=== PATIENT | female | born 1955 | race Caucasian/White ===

== ENCOUNTER 2016-11-24 13:05 | Emergency (ER) | payer OTHER, BC ==
[2016-11-24 13:20] VITALS: BP 113/80; PULSE 77; TEMP 97.5; BMI 29.7
--- NOTE | 2016-11-24 13:22 | PDOC ---
History of Present Illness - General Chief Complaint: Pain Stated Complaint: ABDOMINAL PAIN/NAUSEA History Source: Patient Exam Limitations: No Limitations - History of Present Illness Travel History: No Initial Comments: 11/24/16 13:50 61y F hx of hypothyroidism, niddm, hl, presents with complaint of abd pain. pt states her abd pain started on thursday, associated with several episodes of vomiting on thursday/thursday as well as several episdoes of water diarrhea. The pt denies any fever/chills. Pt states her abd pain started in the periumbilical area originally and has radiated to the rigght lower quadrant. pt denies any bilious vomiting (only of food contents) and denies melena, bpr. no sick contacts. pt travelling up from [place] to visit her daugther. Past History - Past Medical History Allergies/Adverse Reactions: Allergies Allergy/AdvReac Type Severity Reaction Status Date / Time acetaminophen [From Percocet] Allergy Verified 11/24/16 13:26 codeine Allergy Verified 11/24/16 13:25 ketorolac tromethamine Allergy Verified 11/24/16 13:26 [From Toradol] oxycodone HCl [From Percocet] Allergy Verified 11/24/16 13:26 Sulfa (Sulfonamide Allergy Verified 11/24/16 13:25 Antibiotics) Home Medications: Ambulatory Orders Allopurinol [Zyloprim -] 200 mg PO HS 11/24/16 Atorvastatin Ca [Lipitor] 10 mg PO HS 11/24/16 Bupropion HCl [Bupropion Xl] 150 mg PO BID 11/24/16 Butalb/Acetaminophen/Caffeine [Fioricet 50-300-40 mg Capsule] 1 each PO PRN PRN 11/24/16 Clonazepam [Klonopin] 1 mg PO AM 11/24/16 Clonazepam [Klonopin] 2 mg PO HS 11/24/16 Cyanocobalamin (Vitamin B-12) [Cyanocobalamin Injection] 1,000 mcg IJ WEEKLY Empagliflozin [Jardiance] 10 mg PO DAILY 11/24/16 Gabapentin 100 mg PO TID 11/24/16 Levothyroxine [Synthroid -] 137 mcg PO DAILY 11/24/16 Metformin HCl [Metformin HCl ER] 1,000 mg PO BID 11/24/16 Pantoprazole Sodium 40 mg PO DAILY 11/24/16 Sumatriptan Succinate [Imitrex] 25 mg PO PRN PRN 11/24/16 Tramadol HCl [Ultram] 50 mg PO PRN PRN 11/24/16 Trazodone HCl 400 mg PO HS 11/24/16 Trulicity IJ WEEKLY 11/24/16 - Psycho/Social/Smoking Cessation Hx Suicidal Ideation: No Smoking History: Never smoked Review of Systems - Review of Systems Able to Perform ROS?: Yes Comments:: 11/24/16 13:52 Constitutional - no reported Fever, Chills, weakness, HEENT: no reported vision changes, sore throat Respiratory: no reported cough, sob, hemoptysis Cardiac: no reported chest pain, palpitations, light headedness, leg swelling Abd/GI: + abd pain, nausea, vomiting, diarrhea no reported blood per rectum, melena, : no reported dysuria, frequency, discharge Musculskelatal - no reported back pain, joint swelling skin - no reported bruising, erythema, rash neurological: no reported headache, numbness, focal weakness, tingling, ataxia, weakness hematologic: no reported anemia, easy bruising, easy bleeding *Physical Exam - Vital Signs Last Vital Signs Temp Pulse Resp BP Pulse Ox 97.5 F L 77 16 113/80 100 11/24/16 13:18 11/24/16 13:18 11/24/16 13:18 11/24/16 13:18 11/24/16 13:18 - Physical Exam Comments: 11/24/16 13:53 GENERAL: The patient is awake, alert, and fully oriented, Nontoxic - in no acute distress. HEAD: Normocephalic, atraumatic. EYES: extraocular movements intact, sclera anicteric, conjunctiva clear. ENT: Normal voice, Moist mucous membranes. NECK: Normal range of motion, supple LUNGS: Breath sounds equal, clear to auscultation bilaterally. No wheezes, no rhonchi, no rales. HEART: Regular rate and rhythm, normal S1 and S2 without murmur, rub or gallop. ABDOMEN: mild difufse tenderness but most in the RLQ EXTREMITIES: Normal range of motion, no edema. No clubbing or cyanosis. No cords, erythema, or tenderness. NEUROLOGICAL: No facial assymetry, Normal speech, PSYCH: Normal mood, normal affect. SKIN: Warm, Dry, normal turgor, ED Treatment Course - LABORATORY CBC & Chemistry Diagram: 11/24/16 13:58 11/24/16 13:55 Medical Decision Making - Medical Decision Making 11/24/16 13:53 61y F with abd pain n/v and diarrhea, pain in the eipgastrium radiating to the rLQ on exam pt with tenderness in the rLQ/suprapubic region suspect AGE, but need to consider appendicitis and UTI will ck labs, ua, lipase will give morphine for pain, zofran and fluisd will reasess, consider further imaging/ct if persistent tenderness/pain. 11/24/16 16:17 labs unremarkable pts with persistent pain so CT was obtained which is negative for acut epathology but there is sign of a hypodensity near spleen. pt states she is visiting from [place] and has no PMD here and will not be going back to [place] for a while rquesets US here. will obtain an US 11/24/16 18:49 pt feeling improved, tolerating oral intake currently US shows massess that appeaer to be hemangiomas i discussed the findings with the patient and she will fullow up with her docotor for further evaluation copies of thes ct and US iven to patient. return precaue discussed I discussed the physical exam findings, ancillary test results and final diagnoses with the patient. I answered all of the patient's questions. The patient was satisfied with the care received and felt comfortable with the discharge plan and treatment plan. The patient will call their primary care physician within 24 hours to arrange follow-up and will return to the Emergency Department with any new, persistent or worsening symptoms. *DC/Admit/Observation/Transfer Diagnosis at time of Disposition: Abdominal pain Qualifiers: Abdominal location: right lower quadrant Qualified Code(s): R10.31 - Right lower quadrant pain - Discharge Dispostion Condition at time of disposition: Stable Admit: No - Referrals Referrals: [facility] [Provider Group] - Patient Instructions Printed Discharge Instructions: DI for Abdominal Pain-Adult Additional Instructions: Return to the emergency department immediately with ANY new, persistent or worsening symptoms including worsening abdominal pain, fevers, inability to tolerate oral intake, chest pain, shortness of breath or any other concerns. Your CAT franz and ultrasounds, pleaese review with your primary care doctor There was a nodule seen on your spleen on your CT and Ultrasond, please follow up with your primary doctor for further monitoring. Stay well hydrated. Print Language: ROMANIAN
[2016-11-24] MEDS ORDERED: ONDANSETRON 4 MG/2 ML VIAL IVPB ONE (13:39)
[2016-11-24] MEDS ORDERED: morphine CARPU-JECT 2 MG/1 ML DISP.SYRIN IVPUSH ONE (13:39)
[2016-11-24] MEDS ORDERED: SODIUM CHLORIDE 1,000 ML IV ONE (13:40)
[2016-11-24] MEDS ORDERED: morphine CARPU-JECT 10 MG/1 ML DISP.SYRIN ONE (13:47)
[2016-11-24] MEDS ORDERED: ONDANSETRON 4 MG/2 ML VIAL ONE (13:47)
[2016-11-24 14:18] LABS: BASOPHIL 0.9 % (0-2.0); MCHC 31.5 g/dl (32.0-36.0); MEAN PLT VOLUME 9.4 fl (7.5-11.1); PLATELET COUNT 277 K/MM3 (134-434); RDW 17.6 % (11.6-15.6); WHITE BLOOD COUNT 5.8 K/mm3 (4.0-10.0)
[2016-11-24 14:18] LABS: PH,URINE 5.5 (4.5-8); URINE APPEARANCE Clear; URINE BILIRUBIN Negative (NEGATIVE); URINE BLOOD Negative (NEGATIVE); URINE GLUCOSE (UA) 3+ (NEGATIVE); URINE KETONE Negative (NEGATIVE); URINE LEUK ESTERASE Negative (NEGATIVE); URINE NITRITE Negative (NEGATIVE); URINE PROTEIN Negative (NEGATIVE); URINE UROBILINOGEN 0.2 E.U/dl (0.2-1.0)
[2016-11-24 14:20] LABS: URINE COLOR YELLOW
[2016-11-24 14:20] LABS: ALBUMIN 3.7 g/dl (3.5-5.0); BILIRUBIN,TOTAL 0.2 mg/dl (0.2-1.0); CALCIUM 8.8 mg/dl (8.4-10.2); CREATININE 1.2 mg/dl (0.6-1.3); TOT PROT 6.3 g/dl (6.4-8.3)
[2016-11-24 14:54] LABS: ANISOCYTOSIS 1+; HYPOCHROMIA 1+; MICROCYTOSIS 1+; OVALOCYTES 2+; SCHISTOCYTES OCC; TEAR DROP CELLS 1+
== END 2016-11-24 18:59 | disposition home or self-care (01) ==
LOC: FER 13:05
PROC: 3E033NZ Introduction of Analgesics, Hypnotics, Sedatives into Peripheral Vein, Percutaneous Approach (ICD-10-PCS; principal; 2016-11-24)
PROC: 3E033GC Introduction of Other Therapeutic Substance into Peripheral Vein, Percutaneous Approach (ICD-10-PCS; 2016-11-24)
PROC: 3E0337Z Introduction of Electrolytic and Water Balance Substance into Peripheral Vein, Percutaneous Approach (ICD-10-PCS; 2016-11-24)
DX: R10.31 Right lower quadrant pain (principal); E03.9 Hypothyroidism, unspecified; E11.9 Type 2 diabetes mellitus without complications; E78.5 Hyperlipidemia, unspecified
CPT/HCPCS: 36415; 74177-TC; 76705-TC; 80053; 81003; 83690; 85025; 96361; 96374; 96375; 99283-25; Q9967